=== PATIENT | male | born 1990 | race Caucasian/White ===

== ENCOUNTER 2017-05-13 07:13 | Observation (INO) | payer SELFPAY ==
[~2017-05-13] VITALS: Ht 185.4 cm; Wt 72.0 kg
[2017-05-13 07:16] VITALS: BP 137/77; PULSE 74; RESP 24; O2SAT 100
[2017-05-13 07:39] VITALS: TEMP 98.5
[2017-05-13] MEDS ORDERED: SODIUM CHLOR 0.9% 1000 ML INJ 1,000 ML IV ONE ×3 (08:00→09:45)
[2017-05-13 08:02] VITALS: O2SAT 99
[2017-05-13 08:14] LABS: AUTOMATED NEUTROPHIL # 4.1 TH/MM3 (1.8-7.7); BASOPHIL % 0.5 % (0.0-2.0); EOSINOPHIL # 0.1 TH/MM3 (0-0.4); EOSINOPHIL % 1.7 % (0.0-4.0); HEMATOCRIT 49.5 % (39.0-51.0); HEMO FLAGS DIFF FINAL; LYMPHOCYTE # 2.1 TH/MM3 (1.0-4.8); MEAN CELL VOLUME 86.4 FL (80.0-100.0); MEAN CORPUSCULAR HEMOGLOBIN 30.2 PG (27.0-34.0); MEAN CORPUSCULAR HGB CONC 34.9 % (32.0-36.0); MONO % 10.3 % (0.0-8.0); NEUT % 58.5 % (16.0-70.0); PLATELET COUNT 279 TH/MM3 (150-450); RED BLOOD COUNT 5.73 MIL/MM3 (4.50-5.90); RED CELL DISTRIBUTION WIDTH 13.2 % (11.6-17.2); WHITE BLOOD COUNT 7.1 TH/MM3 (4.0-11.0)
--- NOTE | 2017-05-13 08:26 | PD ---
HPI Chief Complaint: GI Complaint Time Seen by Provider: 07:55 Travel History International Travel<30 days: No Contact w/Intl Traveler<30days: No Traveled to known affect area: No History of Present Illness HPI Our patient is a 26 year old male presenting with a 3 day history of nausea, vomiting, abdominal pain and chest pain. He reports fainting yesterday after working in the heat. He has associated mild diarrhea, fatigue and chills, but denies fever, or changes in urinary habits. 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 Before being in the heat the last 3 days, the patient has not felt sick He reports not being able to eat or drink without vomiting. He tried to request a different task at his job but his boss only has welding work available for him. He hasn't tried anything for his symptoms, and reports no medication use. He describes his abdominal and chest pain as non-radiating, 7/ 10 and constant. He notes they are more after he vomits. Today, his symptoms are at their worst. He denies having any allergies. He has not had similar symptoms before. He smokes a half a pack of cigarettes a day. Reports occasional marijuana use to treat his herniated disk. He has no other medical problems and denies alcohol consumption. [facility] Past Medical History Narrative Medical Disk herniation Hx Anticoagulant Therapy: No Cardiovascular Problems: No Chemotherapy: No Cerebrovascular Accident: No Diabetes: No Respiratory: No Tetanus Vaccination: < 5 Years Influenza Vaccination: No ?: Not Past Surgical History Hysterectomy: No Social History Alcohol Use: Yes (rarely ) Tobacco Use: Yes (1/2 ppd) Substance Use: Yes (occasionally) Allergies-Medications (Allergen,Severity, Reaction): Coded Allergies: Codeine (Verified Allergy, Intermediate, n/v, 05/13/17) Reported Meds & Prescriptions Reported Meds & Active Scripts Active No Active Prescriptions or Reported Medications Review of Systems Except as stated in HPI: all other systems reviewed are Neg Physical Exam Narrative GENERAL: Alert and oriented. Shaking in bed, but still able to speak in full sentences. SKIN: Warm and dry. HEAD: Atraumatic. Normocephalic. EYES: Pupils equal and round. No scleral icterus. No injection or drainage. ENT: No nasal bleeding or discharge. Mucous membranes dry. NECK: Trachea midline. No JVD. CARDIOVASCULAR: Regular rate and rhythm. RESPIRATORY: No accessory muscle use. Clear to auscultation. Breath sounds equal bilaterally. GASTROINTESTINAL: Abdomen soft, non-tender, nondistended. Hepatic and splenic margins not palpable. MUSCULOSKELETAL: Extremities without clubbing, cyanosis, or edema. No obvious deformities. NEUROLOGICAL: Awake and alert. No obvious cranial nerve deficits. Motor grossly within normal limits. Five out of 5 muscle strength in the arms and legs. Normal speech. PSYCHIATRIC: Appropriate mood and affect; insight and judgment normal. Data Data Last Documented VS Vital Signs Date Time Temp Pulse Resp B/P Pulse Ox O2 Delivery O2 Flow Rate FiO2 05/13/17 08:02 99 Room Air 05/13/17 07:39 98.5 05/13/17 07:27 25 05/13/17 07:16 74 137/77 Orders Complete Blood Count With Diff (05/13/17 07:55) Comprehensive Metabolic Panel (05/13/17 07:55) Creatine Kinase (Cpk) (05/13/17 07:55) Ecg Monitoring (05/13/17 07:55) Oximetry (05/13/17 07:55) Sodium Chlor 0.9% 1000 Ml Inj (Ns 1000 M (05/13/17 08:00) Sodium Chlor 0.9% 1000 Ml Inj (Ns 1000 M (05/13/17 08:00) Electrocardiogram (05/13/17 08:11) Admit Order (Ed Use Only) (05/13/17 09:21) Labs Laboratory Tests Test 05/13/17 08:00 White Blood Count 7.1 TH/MM3 Red Blood Count 5.73 MIL/MM3 Hemoglobin 17.3 GM/DL Hematocrit 49.5 % Mean Corpuscular Volume 86.4 FL Mean Corpuscular Hemoglobin 30.2 PG Mean Corpuscular Hemoglobin 34.9 % Concent Red Cell Distribution Width 13.2 % Platelet Count 279 TH/MM3 Mean Platelet Volume 8.6 FL Neutrophils (%) (Auto) 58.5 % Lymphocytes (%) (Auto) 29.0 % Monocytes (%) (Auto) 10.3 % Eosinophils (%) (Auto) 1.7 % Basophils (%) (Auto) 0.5 % Neutrophils # (Auto) 4.1 TH/MM3 Lymphocytes # (Auto) 2.1 TH/MM3 Monocytes # (Auto) 0.7 TH/MM3 Eosinophils # (Auto) 0.1 TH/MM3 Basophils # (Auto) 0.0 TH/MM3 CBC Comment DIFF FINAL Differential Comment Sodium Level 134 MEQ/L Potassium Level 4.0 MEQ/L Chloride Level 99 MEQ/L Carbon Dioxide Level 24.1 MEQ/L Anion Gap 11 MEQ/L Blood Urea Nitrogen 28 MG/DL Creatinine 1.73 MG/DL Estimat Glomerular Filtration 48 ML/MIN Rate Random Glucose 90 MG/DL Calcium Level 10.0 MG/DL Total Bilirubin 0.4 MG/DL Aspartate Amino Transf 26 U/L (AST/SGOT) Alanine Aminotransferase 29 U/L (ALT/SGPT) Alkaline Phosphatase 96 U/L Total Creatine Kinase 247 U/L Total Protein 9.3 GM/DL Albumin 5.1 GM/DL [facility] Medical Decision Making Medical Screen Exam Complete: Yes Emergency Medical Condition: Yes Differential Diagnosis Heat exhaustion, viral gastroenteritis, bacterial gastroenteritis, dehydration. Narrative Course Our patient is a 26 y.o. welder machine operator who works outside with no past medical presenting with nausea, vomiting, abdominal pain and mild diarrhea of 3 day duration. His symptoms began since working outside in the heat. Due to suspected dehydration and heat exhaustion, patient agreed to receive IV fluids and undergo blood and urine testing to exclude other causes of his symptoms. After receiving fluids, the patient has stopped shaking in bed and reports feeling better. Patient's BUN/creatinine were elevated. Creatinine was 1.73. CK was normal. The patient was offered admission for continuous I V fluids given he has acute kidney injury likely secondary to his heat related illness. The patient has refused admission. I informed him of the importance of him following up with a primary care doctor. I did want that he could have permanent damage to his kidneys however he still wished to go home. Diagnosis Primary Impression: heat related illness Additional Impression: Acute kidney injury Additional Instructions: Follow up with a primary care doctor for evaluation of his kidney function. Drink plenty of fluids. Scripts No Active Prescriptions or Reported Meds Disposition: 01 DISCHARGE HOME Condition: Stable Matthew Bush MD May 13, 2017 08:26
[2017-05-13 08:37] LABS: ALKALINE PHOSPHATASE 96 U/L (45-117); CREATINE KINASE 247 U/L (39-308); TOTAL BILIRUBIN ADULT 0.4 MG/DL (0.2-1.0)
[2017-05-13 08:44] LABS: ALT (GPT) 29 U/L (12-78); ANION GAP 11 MEQ/L (5-15); AST (GOT) 26 U/L (15-37); BICARBONATE 24.1 MEQ/L (21.0-32.0); BLOOD UREA NITROGEN 28 MG/DL (7-18); CHLORIDE 99 MEQ/L (98-107); GLOMERULAR FILTRATION RATE 48 ML/MIN (>89); SODIUM (NA) 134 MEQ/L (136-145)
[2017-05-13 10:30] VITALS: BP 115/58; PULSE 71; RESP 20; O2SAT 99
--- NOTE | 2017-05-13 16:11 | EKG ---
Date Performed: 05/13/2017 Time Performed: 07:34:21 PTAGE: 26 years EKG: Sinus rhythm POSSIBLE LEFT ATRIAL ENLARGEMENT POSSIBLE RIGHT VENTRICULAR CONDUCTION DELAY BORDERLINE ECG NO PREVIOUS TRACING DOCTOR: Carline Rees Interpretating Date/Time 05/13/2017 16:10:11
== END 2017-05-13 11:23 | disposition left against medical advice (07) ==
LOC: NEPC 07:13 → NEDA 09:23
PROVIDERS: ADMIT Family Medicine; ATTEND Family Medicine
DX: N17.9 Acute kidney failure, unspecified (principal); R07.9 Chest pain, unspecified; R10.9 Unspecified abdominal pain; R19.7 Diarrhea, unspecified; T67.5XXA Heat exhaustion, unspecified, initial encounter; R55 Syncope and collapse; F17.210 Nicotine dependence, cigarettes, uncomplicated
CPT/HCPCS: 80053; 82550; 85025; 93005; 96360; 99285; G0378; J7030

== ENCOUNTER 2017-10-14 14:37 | Emergency (ER) | payer SELFPAY ==
[~2017-10-14] VITALS: Ht 185.4 cm; Wt 75.0 kg
[2017-10-14 14:38] VITALS: BP 143/85; PULSE 82; RESP 14; TEMP 98.4; O2SAT 99
[2017-10-14] MEDS ORDERED: CLIN300C5 PO (15:43)
[2017-10-14] MEDS ORDERED: NABU1TAB37 PO (15:43)
--- NOTE | 2017-10-14 15:59 | PD ---
HPI . Dental pain Chief Complaint: Oral / Dental Pain or Problem Time Seen by Provider: 15:35 Travel History International Travel<30 days: No Contact w/Intl Traveler<30days: No Traveled to known affect area: No History of Present Illness HPI This patient presents with a chief complaint of dental pain. He reports pain associated with several teeth. He states that the pain is unrelieved by ibuprofen, Tylenol and Orajel. He rates the pain 10/10. PFSH Past Medical History Medical History: Denies Significant Hx Hx Anticoagulant Therapy: No Cardiovascular Problems: No Chemotherapy: No Cerebrovascular Accident: No Diabetes: No Diminished Hearing: No Respiratory: No Past Surgical History Surgical History: No Previous Surgery Hysterectomy: No Social History Alcohol Use: Yes (rarely ) Tobacco Use: Yes (1/2 ppd) Substance Use: Yes (occasionally) Allergies-Medications (Allergen,Severity, Reaction): Coded Allergies: codeine (Unverified Allergy, Intermediate, n/v, 07/05/17) Reported Meds & Prescriptions Reported Meds & Active Scripts Active Nabumetone 500 Mg Tab 500 Mg PO BID Clindamycin (Clindamycin HCl) 300 Mg Cap 300 Mg PO Q6H Review of Systems Except as stated in HPI: all other systems reviewed are Neg HENT: Positive: Dental Difficulties Physical Exam Narrative GENERAL: Awake and alert and in no acute distress. SKIN: Warm and dry. HEAD: Normocephalic/atraumatic. There is no facial swelling. EYES: Pupils are equal. Extraocular movements are intact. ENT: Diffuse poor dental hygiene. Most of his teeth have deep cavities. NECK: Normal range of motion. No cervical lymphadenopathy. CARDIOVASCULAR: Regular rate and rhythm. RESPIRATORY: Nonlabored respirations. MUSCULOSKELETAL: Atraumatic. NEUROLOGICAL: Nonfocal. PSYCHIATRIC: Appropriate mood and affect. Data Data Last Documented VS Vital Signs Date Time Temp Pulse Resp B/P (MAP) Pulse Ox O2 Delivery O2 Flow Rate FiO2 10/14/17 14:38 98.4 82 14 143/85 (104) 99 Orders Orders Ed Discharge Order (10/14/17 15:44) MDM Medical Decision Making Medical Screen Exam Complete: Yes Emergency Medical Condition: Yes Differential Diagnosis Differential diagnosis of a toothache includes but is not limited to dental caries, dental abscess, gingivitis, drug-seeking behavior. Narrative Course This patient presents complaining with multiple toothaches. He has deep cavities in most teeth. There is no facial swelling. There is no cervical lymphadenopathy. He is not running a fever. I am discharging him on clindamycin and Relafen and instructions to see a dentist. Diagnosis Primary Impression: Dental decay Referrals: Dentist Patient Instructions: General Instructions, Dental Caries (ED) Departure Forms: Tests/Procedures Scripts Nabumetone (Nabumetone) 500 Mg Tab 500 MG PO BID for Pain-Inflammation, #60 TAB 0 Refills Prov: Jocelyn Gong MD 10/14/17 Clindamycin (Clindamycin) 300 Mg Cap 300 MG PO Q6H for Infection, #40 CAP 0 Refills Prov: Jocelyn Gong MD 10/14/17 Disposition: 01 DISCHARGE HOME Condition: Stable Jocelyn Gong MD Oct 14, 2017 15:59
== END 2017-10-14 16:33 | disposition home or self-care (01) ==
LOC: NEPK 14:37
DX: K02.9 Dental caries, unspecified (principal); F17.200 Nicotine dependence, unspecified, uncomplicated; Z79.899 Other long term (current) drug therapy; Z88.5 Allergy status to narcotic agent
CPT/HCPCS: 99284